=== PATIENT | female | born 1940 | race Caucasian/White ===

== ENCOUNTER 2022-10-11 15:23 | Emergency (ER) | payer MEDICARE, BC ==
[2022-10-11] MEDS ORDERED: FUROSEMIDE 10 MG/ML 4 ML VIAL IV STA (17:14)
--- NOTE | 2022-10-11 17:19 | ED ---
General Adult HPI - General Chief complaint: Extremity Problem,Nontraumatic Stated complaint: poss blood clot legs-sent from drs Time Seen by Provider: 10/11/22 16:59 Source: patient, family, RN notes reviewed Mode of arrival: ambulatory Limitations: no limitations - History of Present Illness Initial comments: Patient is a pleasant 82-year-old female presenting to the emergency department with concerns for leg edema. Symptoms have been progressive worsened over the past several weeks. Patient does have some bilateral lower extremity discomfort and erythema. No calf pain. No chest pain or dyspnea. Patient did see her doctor with concern for infection however did want her to come for ultrasound to make sure there is no blood clot. Patient denies dyspnea. - Related Data Home Medications Medication Instructions Recorded Confirmed Furosemide [Lasix] 40 mg PO DAILY 10/11/22 10/11/22 Ibuprofen [Advil] 200 mg PO BID PRN 10/11/22 10/11/22 Melatonin 5 mg PO HS 10/11/22 10/11/22 Verapamil HCl [Verapamil ER] 360 mg PO DAILY 10/11/22 10/11/22 rOPINIRole HCL [Requip] 1 mg PO HS 10/11/22 10/11/22 Allergies Allergy/AdvReac Type Severity Reaction Status Date / Time No Known Allergies Allergy Verified 10/11/22 17:32 Review of Systems ROS Statement: Those systems with pertinent positive or pertinent negative responses have been documented in the HPI. ROS Other: All systems not noted in ROS Statement are negative. Constitutional: Denies: fever Eyes: Denies: eye pain ENT: Denies: ear pain Respiratory: Denies: cough Cardiovascular: Denies: chest pain Endocrine: Denies: fatigue Gastrointestinal: Denies: abdominal pain Genitourinary: Denies: dysuria Musculoskeletal: Denies: back pain Skin: Reports: as per HPI, rash Neurological: Denies: weakness Past Medical History Past Medical History: Hypertension Additional Past Medical History / Comment(s): CHF, Sores History of Any Multi-Drug Resistant Organisms: None Reported Past Surgical History: Orthopedic Surgery Additional Past Surgical History / Comment(s): Stomach, Past Psychological History: No Psychological Hx Reported Smoking Status: Never smoker Past Alcohol Use History: None Reported Past Drug Use History: None Reported General Exam Limitations: no limitations General appearance: alert, in no apparent distress Head exam: Present: normocephalic Eye exam: Present: normal appearance Neck exam: Present: normal inspection Respiratory exam: Present: normal lung sounds bilaterally Cardiovascular Exam: Present: regular rate, normal rhythm GI/Abdominal exam: Present: soft. Absent: tenderness Extremities exam: Present: pedal edema. Absent: calf tenderness Neurological exam: Present: alert Psychiatric exam: Present: normal affect, normal mood Skin exam: Present: erythema (Bilateral anterior lower legs) Course Vital Signs 10/11/22 10/11/22 10/11/22 15:30 17:05 17:41 Temperature 97.9 F Pulse Rate 68 69 Respiratory 18 16 20 Rate Blood Pressure 134/79 150/69 O2 Sat by Pulse 96 96 Oximetry 10/11/22 10/11/22 18:00 19:00 Temperature Pulse Rate 68 68 Respiratory 16 16 Rate Blood Pressure 140/68 160/100 O2 Sat by Pulse 96 98 Oximetry EKG Findings - EKG Results: EKG: interpreted by ERMD (LVH criteria. Artifact is present. Nonspecific ST- T.), sinus rhythm, normal axis Medical Decision Making - Medical Decision Making Was pt. sent in by a medical professional or institution (Dr. PA, HYDROELECTRIC MACHINERY MECHANIC HELPER, urgent care, hospital, or [facility]...) When possible be specific @ -No Did you speak to anyone other than the patient for history (EMS, parent, family, police, friend...)? What history was obtained from this source @ -Son is present who does provide history including patient has prescription for antibiotics week for her when discharged Did you review nursing and triage notes (agree or disagree)? Why? @ -I reviewed and agree with nursing and triage notes Were old charts reviewed (outside hosp., previous admission, EMS record, old EKG, old radiological studies, urgent care reports/EKG's, [facility] records)? Report findings @ -No old charts were reviewed Differential Diagnosis (chest pain, altered mental status, abdominal pain women, abdominal pain men, vaginal bleeding, weakness, fever, dyspnea, syncope, headache, dizziness, GI bleed, back pain, seizure, CVA, palpatations, mental health)? @ -not applicable EKG interpreted by me (3pts min.). @ -As above X-rays interpreted by me (1pt min.). @ -Is x-ray does not reveal acute abnormality CT interpreted by me (1pt min.). @ -None done U/S interpreted by me (1pt. min.). @ -Report reviewed What testing was considered but not performed or refused? (CT, X-rays, U/S, labs)? Why? @ -None What meds were considered but not given or refused? Why? @ -Consider prescription for anabiotic however patient already has this waiting for her at the pharmacy as prescribed by primary care physician as well as i [id number] in Lasix dose Did you discuss the management of the patient with other professionals (professionals i.e. , PA, HYDROELECTRIC MACHINERY MECHANIC HELPER, lab, RT, psych nurse, social work therapist, commissioned fire officer, teacher, chief juvenile probation officer, director case)? Give summary @ -No Was smoking cessation discussed for >3mins.? @ -No Was critical care preformed (if so, how long)? @ -No Were there social determinants of health that impacted care today? How? (Homelessness, low income, unemployed, alcoholism, drug addiction, transportation, low edu. Level, literacy, decrease access to med. care, custodial, rehab)? @ -No Was there de-escalation of care discussed even if they declined (Discuss DNR or withdrawal of care, Hospice)? DNR status @ -No What co-morbidities impacted this encounter? (DM, HTN, Smoking, COPD, CAD, Cancer, CVA, ARF, Chemo, Hep., AIDS, mental health diagnosis, sleep apnea, morbid obesity)? @ -None Was patient admitted / discharged? Hospital course, mention meds given and route, prescriptions, significant lab abnormalities, going to OR and other pertinent info. @ -Patient reevaluated and resting comfortably in bed. Patient does have mild improvement with Lasix. Patient and family updated on results and need for follow-up. I do agree with prescription for antibiotics and they will get this filled and started tonight Undiagnosed new problem with uncertain prognosis? @ -No Drug Therapy requiring intensive monitoring for toxicity (Heparin, Nitro, Insulin, Cardizem)? @ -No Were any procedures done? @ -No Diagnosis/symptom? @ -Cellulitis Acute, or Chronic, or Acute on Chronic? @ -Acute Uncomplicated (without systemic symptoms) or Complicated (systemic symptoms)? @ -default Side effects of treatment? @ -No Exacerbation, Progression, or Severe Exacerbation? @ -No Poses a threat to life or bodily function? How? (Chest pain, USA, ND, pneumonia, PE, COPD, DKA, ARF, appy, cholecystitis, CVA, Diverticulitis, Homicidal, Suicidal, threat to staff... and all critical care pts) @ -No - Lab Data Result diagrams: 10/11/22 17:32 10/11/22 17:32 Lab Results 10/11/22 10/11/22 10/11/22 Range/Units 17:15 17:15 17:15 WBC (3.8-10.6) k/uL RBC (3.80-5.40) m/uL Hgb (11.4-16.0) gm/dL Hct (34.0-46.0) % MCV (80.0-100.0) fL MCH (25.0-35.0) pg MCHC (31.0-37.0) g/dL RDW (11.5-15.5) % Plt Count (150-450) k/uL MPV Neutrophils % (Manual) % Lymphocytes % (Manual) % Monocytes % (Manual) % Eosinophils % (Manual) % Neutrophils # (Manual) (1.3-7.7) k/uL Lymphocytes # (Manual) (1.0-4.8) k/uL Monocytes # (Manual) (0-1.0) k/uL Eosinophils # (Manual) (0-0.7) k/uL Nucleated RBCs (0-0) /100 WBC Manual Slide Review RBC Morphology PT 10.4 (9.0-12.0) sec INR 1.0 (<1.2) APTT 23.4 (22.0-30.0) sec Sodium (137-145) mmol/L Potassium (3.5-5.1) mmol/L Chloride (98-107) mmol/L Carbon Dioxide (22-30) mmol/L Anion Gap mmol/L BUN (7-17) mg/dL Creatinine (0.52-1.04) mg/dL Est GFR (CKD-EPI)AfAm (>60 ml/min/1.73 sqM) Est GFR (CKD-EPI)NonAf (>60 ml/min/1.73 sqM) Glucose (74-99) mg/dL Plasma Lactic Acid Dell (0.7-2.0) mmol/L Calcium (8.4-10.2) mg/dL Magnesium (1.6-2.3) mg/dL Total Bilirubin (0.2-1.3) mg/dL AST (14-36) U/L ALT (4-34) U/L Alkaline Phosphatase (38-126) U/L Troponin I <0.012 (0.000-0.034) ng/mL NT-Pro-B Natriuret Pep 220 pg/mL Total Protein (6.3-8.2) g/dL Albumin (3.5-5.0) g/dL 10/11/22 10/11/22 10/11/22 Range/Units 17:32 17:32 17:32 WBC 8.1 (3.8-10.6) k/uL RBC 4.44 (3.80-5.40) m/uL Hgb 12.2 (11.4-16.0) gm/dL Hct 36.4 (34.0-46.0) % MCV 82.0 (80.0-100.0) fL MCH 27.5 (25.0-35.0) pg MCHC 33.5 (31.0-37.0) g/dL RDW 15.1 (11.5-15.5) % Plt Count 201 (150-450) k/uL MPV 9.0 Neutrophils % (Manual) 69 % Lymphocytes % (Manual) 23 % Monocytes % (Manual) 5 % Eosinophils % (Manual) 3 % Neutrophils # (Manual) 5.59 (1.3-7.7) k/uL Lymphocytes # (Manual) 1.86 (1.0-4.8) k/uL Monocytes # (Manual) 0.41 (0-1.0) k/uL Eosinophils # (Manual) 0.24 (0-0.7) k/uL Nucleated RBCs 0 (0-0) /100 WBC Manual Slide Review Performed RBC Morphology Normal PT (9.0-12.0) sec INR (<1.2) APTT (22.0-30.0) sec Sodium 140 (137-145) mmol/L Potassium 4.3 (3.5-5.1) mmol/L Chloride 104 (98-107) mmol/L Carbon Dioxide 26 (22-30) mmol/L Anion Gap 10 mmol/L BUN 32 H (7-17) mg/dL Creatinine 1.00 (0.52-1.04) mg/dL Est GFR (CKD-EPI)AfAm 61 (>60 ml/min/1.73 sqM) Est GFR (CKD-EPI)NonAf 53 (>60 ml/min/1.73 sqM) Glucose 82 (74-99) mg/dL Plasma Lactic Acid Dell 1.2 (0.7-2.0) mmol/L Calcium 9.0 (8.4-10.2) mg/dL Magnesium 2.4 H (1.6-2.3) mg/dL Total Bilirubin 1.4 H (0.2-1.3) mg/dL AST 26 (14-36) U/L ALT 16 (4-34) U/L Alkaline Phosphatase 136 H (38-126) U/L Troponin I (0.000-0.034) ng/mL NT-Pro-B Natriuret Pep pg/mL Total Protein 7.9 (6.3-8.2) g/dL Albumin 4.3 (3.5-5.0) g/dL Disposition Clinical Impression: Cellulitis Disposition: HOME SELF-CARE Condition: Stable Instructions (If sedation given, give patient instructions): Cellulitis (ED) Additional Instructions: Please do follow-up to primary care physician in the next couple days for recheck. Return for increased pain, increased swelling, chest pain, fever, difficulty breathing, worsening symptoms or other concerns Is patient prescribed a controlled substance at d/c from ED?: No Referrals: Len Perales MD [Primary Care Provider] - 1-2 days Time of Disposition: 19:59
--- NOTE | 2022-10-11 17:52 | XR ---
EXAMINATION TYPE: XR chest 2V DATE OF EXAM: 10/11/2022 COMPARISON: NONE HISTORY: Difficulty in breathing. TECHNIQUE: Frontal and lateral views of the chest are obtained. FINDINGS: There is no suspicious focal air space opacity, pleural effusion, or pneumothorax seen. T he cardiac silhouette size is upper limits of normal. The osseous structures are demineralized. IMPRESSION: No acute pulmonary process.
[2022-10-11 17:56] LABS: Partial Thromboplastin Time 23.4 sec (22.0-30.0); Prothrombin Time 10.4 sec (9.0-12.0)
[2022-10-11 18:00] LABS: HCT 36.4 % (34.0-46.0); HGB 12.2 gm/dL (11.4-16.0); MCH 27.5 pg (25.0-35.0); MCHC 33.5 g/dL (31.0-37.0); Platelet Count 201 k/uL (150-450); RBC 4.44 m/uL (3.80-5.40); RDW 15.1 % (11.5-15.5); WBC 8.1 k/uL (3.8-10.6)
[2022-10-11 18:11] LABS: Albumin 4.3 g/dL (3.5-5.0); Eosinophils # (M) 0.24 k/uL (0-0.7); Lymphocytes # (M) 1.86 k/uL (1.0-4.8); Magnesium 2.4 mg/dL (1.6-2.3); Monocytes # (M) 0.41 k/uL (0-1.0); Neutrophils # (M) 5.59 k/uL (1.3-7.7); Neutrophils % (M) 69 %; Nucleated Red Blood Cells 0 /100 WBC (0-0); Potassium 4.3 mmol/L (3.5-5.1); Total Bilirubin 1.4 mg/dL (0.2-1.3); Total Cells Counted 100; Total Protein 7.9 g/dL (6.3-8.2)
[2022-10-11 18:12] LABS: RBC Morphology Normal
--- NOTE | 2022-10-11 18:53 | US ---
EXAMINATION TYPE: US venous doppler duplex LE DATE OF EXAM: 10/11/2022 6:36 PM COMPARISON: NONE CLINICAL INDICATION: Female, 82 years old with history of swelling/pain; Left lower calf/foot redness and swelling. No trauma. No hx of DVT. Not on blood thinners SIDE PERFORMED: Bilateral TECHNIQUE: The lower extremity deep venous system is examined utilizing real time linear array sonog kavita with graded compression, doppler sonography and color-flow sonography. VESSELS IMAGED: Common Femoral Vein Deep Femoral Vein Greater Saphenous Vein * Femoral Vein Popliteal Vein Small Saphenous Vein * Proximal Calf Veins (* superficial vessels) Right Leg: Appears negative for DVT. Pt could not tolerate compression in distal femoral vein, but a ppears to have good color flow. Left Leg: Appears negative for DVT Grayscale, color doppler, spectral doppler imaging performed of the deep veins of the bilateral lower extremities. There is normal flow, and vascular waveforms. IMPRESSION: Slightly suboptimal study without convincing evidence for acute DVT in either lower extr emity.
[2022-10-11 20:28] VITALS: BP 138/64; PULSE 71; RESP 20; TEMP 97.5
== END 2022-10-11 20:27 | disposition home or self-care (01) ==
LOC: EC 15:23
DX: L03.116 Cellulitis of left lower limb (principal); L03.115 Cellulitis of right lower limb; I11.0 Hypertensive heart disease with heart failure; I50.9 Heart failure, unspecified; Z79.899 Other long term (current) drug therapy
CPT/HCPCS: 36415; 93005; 83880; 80053; 83605; 83735; 84484; 85025; 85610; 85730; 87040; 71046; 93970; 99284; 96374; J1940